=== PATIENT | male | born 1970 | race Caucasian/White ===

== ENCOUNTER 2018-03-27 08:59 | Emergency (ER) | payer OTHER, SELFPAY ==
[~2018-03-27] VITALS: Ht 185.4 cm; Wt 61.4 kg
[2018-03-27 09:00] VITALS: BP 130/76
[2018-03-27] MEDS ORDERED: METHOCARBAMOL 750 MG TABLET PO ONE (09:30)
[2018-03-27] MEDS ORDERED: KETOROLAC 30 MG/1 ML IM ONE (09:30)
[2018-03-27] MEDS ORDERED: ONDANSETRON ODT 4 MG PO ONE (09:30)
[2018-03-27] MEDS ORDERED: HYDROcodone/APAP 5/325 TABLET PO ONE (09:30)
[2018-03-27] MEDS ORDERED: ONDANSETRON ODT 4 MG ONE (09:34)
[2018-03-27] MEDS ORDERED: METHOCARBAMOL 750 MG TABLET ONE (09:34)
[2018-03-27] MEDS ORDERED: KETOROLAC 30 MG/1 ML ONE (09:35)
[2018-03-27] MEDS ORDERED: HYDROcodone/APAP 5/325 TABLET ONE (09:35)
== END 2018-03-27 11:04 | disposition home or self-care (01) ==
LOC: ED 11:00
DX: S39.012A Strain of muscle, fascia and tendon of lower back, initial encounter (principal); Z88.0 Allergy status to penicillin; X50.9XXA Other and unspecified overexertion or strenuous movements or postures, initial encounter; Y93.89 Activity, other specified; Y99.8 Other external cause status; Y92.89 Other specified places as the place of occurrence of the external cause
CPT/HCPCS: 72110; 96372; 99284; J1885; Q0162